=== PATIENT | male | born 1980 | race Caucasian/White ===

== ENCOUNTER 2024-01-27 21:29 | Emergency (ER) | payer MEDICAID ==
[~2024-01-27] VITALS: Ht 175.2 cm; Wt 86.2 kg
[~2024-01-27 21:29] MED LIST: BENADRYL25 M2 PO; LIDEX 0.05% CRE15 GM T; PREDNISONE10 MG PO
== END 2024-01-27 22:16 | disposition home or self-care (01) ==
LOC: ED 21:29
DX: S62.91XA Unspecified fracture of right hand, initial encounter for closed fracture (principal); Z79.899 Other long term (current) drug therapy; W20.8XXA Other cause of strike by thrown, projected or falling object, initial encounter; Y93.89 Activity, other specified; Y92.89 Other specified places as the place of occurrence of the external cause; Y99.8 Other external cause status

== ENCOUNTER 2024-12-03 06:32 | Emergency (ER) | payer OTHER ==
[~2024-12-03] VITALS: Ht 175.2 cm; Wt 81.6 kg
[2024-12-03] MEDS ORDERED: NAPROXEN250 MG PO (07:04)
== END 2024-12-03 07:07 | disposition home or self-care (01) ==
LOC: ED 06:32
DX: M25.511 Pain in right shoulder (principal)